=== PATIENT | female | born 1960 | race Caucasian/White ===

== ENCOUNTER 2016-11-19 12:36 | Observation (INO) | payer MEDICAID ==
[2016-11-19] MEDS ORDERED: KETOROLAC 30 MG/1 ML SDV IVP ONE (13:03)
[2016-11-19] MEDS ORDERED: NS 1,000 ML IV ONE (13:03)
[2016-11-19] MEDS ORDERED: ONDANSETRON 4 MG/2 ML VIAL IVP ONE (13:03)
--- NOTE | 2016-11-19 13:08 | EDPHY ---
H & P Time Seen by Provider: 11/19/16 12:49 HPI/ROS: CHIEF COMPLAINT: Vomiting and diarrhea HISTORY OF PRESENT ILLNESS: Patient is a 56-year-old female status post cholecystectomy and appendectomy who presents to the emergency department with vomiting and diarrhea since 3:00 a.m.. She initially developed diarrhea. 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 "It is trickling out." She has had 4 episodes nonbloody emesis. She denies fevers or chills. No dysuria or frequency. In fact, she reports decreased urination. She had no known recent travel. No antibiotic use. REVIEW OF SYSTEMS: My complete review of systems is negative except as mentioned in the HPI. Past Medical/Surgical History: Includes hypothyroidism, chronic back pain, depression, suite syndrome Past surgical history: Cholecystectomy, tubal ligation, appendectomy Social: Patient occasionally drinks alcohol. She does not smoke. Smoking Status: Current some day smoker Physical Exam: Vitals noted GENERAL: No acute distress, alert. HEENT: Eyes normal to inspection, normal pharynx, no signs of dehydration. NECK: No thyromegaly, no lymphadenopathy, supple. RESPIRATORY: Clear to auscultation bilaterally, no rales, rhonchi or wheezing. CVS: Regular rate and rhythm, no rubs, murmurs, or gallops. ABDOMEN: Soft, mild diffuse tenderness to palpation. No rebound or guarding. Nondistended, no organomegaly. Normal bowel sounds BACK: Normal to inspection, no CVA tenderness. SKIN: Normal color, no rash, warm, dry. No pallor. EXTREMITIES: No pedal edema, no calf tenderness, no Homans sign or cords, no joint swelling. NEURO/PSYCH: Alert and oriented, normal mood and affect, normal motor sensory exam. Constitutional: Initial Vital Signs Temperature (C) 36.3 C 11/19/16 12:59 Heart Rate 103 H 11/19/16 12:59 Respiratory Rate 18 11/19/16 12:59 Blood Pressure 150/109 H 11/19/16 12:59 O2 Sat (%) 97 11/19/16 12:59 O2 Delivery Mode Room Air Allergies/Adverse Reactions: No Known Allergies Allergy (Verified 11/19/16 12:58) Home Medications: Medication Instructions Recorded Levothyroxine [Synthroid 175 mcg 175 mcg PO DAILY06 01/20/14 (*)] Oxycodone HCl/Acetaminophen 2 each PO BID PRN 01/20/14 [Percocet 10-325 mg Tablet] Medical Decision Making ED Course/Re-evaluation: In the emergency department I discussed possible etiologies with the patient. I answered all her questions. IV was placed. Patient was given normal saline 1 L IV for hydration. She is given Zofran 4 mg IV for nausea. Patient was given Imodium 2 tablets. The patient was given Toradol 30 mg IV for her discomfort. 1340: The patient is stable. Patient [place] [address]. Her hematocrit is high at 55. Chemistry panel is remarkable for mildly elevated sodium of 148. Her calcium is mildly elevated. Anion gap is mildly high at 18. 1355: The patient states her cramping has improved. She still has mild diffuse lower abdominal discomfort. She is given morphine 4 mg IV. She is still waiting CT imaging. CT: Please refer the dictated report by Dr. Chahal. The patient has findings consistent with enteritis. No obstruction or abscess. I rechecked the patient. She states she felt slightly better but still had cramping. She was given repeat morphine 4 mg IV. Discussed the case with Dr. Burr from the hospitalist service. He accepts the patient. The patient agrees with the plan. Differential Diagnosis: My differential includes but is not limited to vomiting diarrhea, gastroenteritis, small-bowel obstruction, perforation, electrolyte abnormality, sugar abnormality, sepsis, bacteremia, dehydration, urinary tract infection - Data Points Laboratory Results: Laboratory Results 11/19/16 13:13 11/19/16 13:13 11/19/16 11/19/16 11/19/16 13:13 13:13 13:13 WBC 18.07 10^3/uL H 10^3/uL (3.80-9.50) RBC 5.95 10^6/uL H 10^6/uL (4.18-5.33) Hgb 18.9 g/dL H g/dL (12.6-16.3) Hct 55.2 % H % (38.0-47.0) MCV 92.8 fL fL (81.5-99.8) MCH 31.8 pg pg (27.9-34.1) MCHC 34.2 g/dL g/dL (32.4-36.7) RDW 12.8 % % (11.5-15.2) Plt Count 401 10^3/uL H 10^3/uL (150-400) MPV 9.2 fL fL (8.7-11.7) Neut % (Auto) 85.9 % H % (39.3-74.2) Lymph % (Auto) 10.5 % L % (15.0-45.0) [place] % (Auto) 2.5 % L % (4.5-13.0) Eos % (Auto) 0.1 % L % (0.6-7.6) Baso % (Auto) 0.4 % % (0.3-1.7) Nucleat RBC Rel Count 0.0 % % (0.0-0.2) Absolute Neuts (auto) 15.52 10^3/uL H 10^3/uL (1.70-6.50) Absolute Lymphs (auto) 1.90 10^3/uL 10^3/uL (1.00-3.00) Absolute Monos (auto) 0.46 10^3/uL 10^3/uL (0.30-0.80) Absolute Eos (auto) 0.01 10^3/uL L 10^3/uL (0.03-0.40) Absolute Basos (auto) 0.08 10^3/uL 10^3/uL (0.02-0.10) Absolute Nucleated RBC 0.00 10^3/uL 10^3/uL (0-0.01) Immature Gran % 0.6 % % (0.0-1.1) Immature Gran # 0.10 10^3/uL 10^3/uL (0.00-0.10) Sodium 148 mEq/L H mEq/L (134-144) Potassium 4.4 mEq/L mEq/L (3.5-5.2) Chloride 108 mEq/L mEq/L (97-110) Carbon Dioxide 22 mEq/l mEq/l (22-31) Anion Gap 18 mEq/L H mEq/L (8-16) BUN 17 mg/dL mg/dL (7-23) Creatinine 0.8 mg/dL mg/dL (0.6-1.0) Estimated GFR > 60 Glucose 104 mg/dL H mg/dL (70-100) Calcium 10.8 mg/dL H mg/dL (8.5-10.4) Phosphorus 4.7 mg/dL H mg/dL (2.5-4.5) Total Bilirubin 0.7 mg/dL mg/dL (0.1-1.4) Conjugated Bilirubin 0.4 mg/dL mg/dL (0.0-0.5) Unconjugated Bilirubin 0.3 mg/dL mg/dL (0.0-1.1) AST 26 IU/L IU/L (14-46) ALT 46 IU/L IU/L (9-52) Alkaline Phosphatase 83 IU/L IU/L (38-126) Total Protein 8.9 g/dL H g/dL (6.3-8.2) Albumin 5.3 g/dL H g/dL (3.5-5.0) Lipase 117 IU/L IU/L (23-300) Beta HCG, Qual NEGATIVE Medications Given: Discontinued Medications Sodium Chloride (Ns) 1,000 mls @ 0 mls/hr IV EDNOW ONE; Wide Open PRN Reason: Protocol Stop: 11/19/16 13:04 Last Admin: 11/19/16 13:10 Dose: 1,000 mls Ketorolac Tromethamine (Toradol) 30 mg IVP EDNOW ONE Stop: 11/19/16 13:04 Last Admin: 11/19/16 13:10 Dose: 30 mg Morphine Sulfate (Morphine) 4 mg IVP EDNOW ONE Stop: 11/19/16 13:56 Last Admin: 11/19/16 13:57 Dose: 4 mg Ondansetron HCl (Zofran) 4 mg IVP EDNOW ONE Stop: 11/19/16 13:04 Last Admin: 11/19/16 13:10 Dose: 4 mg Departure - Departure Disposition: [facility] Clinical Impression: Abdominal pain Qualifiers: Abdominal location: lower abdomen, unspecified Qualified Code(s): R10.30 - Lower abdominal pain, unspecified Diarrhea Qualifiers: Diarrhea type: unspecified type Qualified Code(s): R19.7 - Diarrhea, unspecified Vomiting Qualifiers: Vomiting type: unspecified Vomiting Intractability: unspecified Nausea presence : with nausea Qualified Code(s): R11.2 - Nausea with vomiting, unspecified Condition: Good Referrals: CLINICA CAMPESINA,. [Primary Care Provider] - As per Instructions
[2016-11-19 13:19] LABS: % IMMATURE GRANULYOCYTES 0.6 % (0.0-1.1); ADD DIFF? NO; ADD MORPH? NO; ADD SCAN? NO; ATYPICAL LYMPHOCYTE FLAG 0 (0-99); FRAGMENT RBC FLAG 0 (0-99); HEMATOCRIT 55.2 % (38.0-47.0); HEMOGLOBIN 18.9 g/dL (12.6-16.3); LEFT SHIFT FLG 0 (0-99); LIPEMIA HEMOLYSIS FLAG 90 (0-99); MEAN CELL HEMOGLOBIN 31.8 pg (27.9-34.1); MEAN CELL HEMOGLOBIN CONCENTR. 34.2 g/dL (32.4-36.7); MEAN CELL VOLUME 92.8 fL (81.5-99.8); MEAN PLATELET VOLUME 9.2 fL (8.7-11.7); PLATELET CLUMPS FLAG 10 (0-99); PLATELET COUNT 401 10^3/uL (150-400); RED BLOOD CELL COUNT 5.95 10^6/uL (4.18-5.33); RED CELL DISTRIBUTION WIDTH 12.8 % (11.5-15.2)
[2016-11-19 13:40] LABS: ALANINE AMINOTRANSFERASE 46 IU/L (9-52); ALBUMIN 5.3 g/dL (3.5-5.0); ALKALINE PHOSPHATASE 83 IU/L (38-126); ANION GAP 18 mEq/L (8-16); ASPARTATE AMINOTRANSFERASE 26 IU/L (14-46); BILIRUBIN,TOTAL 0.7 mg/dL (0.1-1.4); BILIRUBIN-CONJUGATED 0.4 mg/dL (0.0-0.5); BILIRUBIN-UNCONJUGATED 0.3 mg/dL (0.0-1.1); CALCIUM 10.8 mg/dL (8.5-10.4); CARBON DIOXIDE 22 mEq/l (22-31); CHLORIDE 108 mEq/L (97-110); CREATININE 0.8 mg/dL (0.6-1.0); GLOMERULAR FILTRATION RATE > 60; GLUCOSE 104 mg/dL (70-100); POTASSIUM 4.4 mEq/L (3.5-5.2); SODIUM 148 mEq/L (134-144); TOTAL PROTEIN 8.9 g/dL (6.3-8.2)
[2016-11-19] MEDS ORDERED: IOPAMIDOL (ISOVUE-300) 100 ML BTL ONE (13:50)
[2016-11-19] MEDS ORDERED: ACETAMINOPHEN 325 MG TAB PO PRN (17:02)
[2016-11-19] MEDS ORDERED: ONDANSETRON DISINTEGRATING 4 MG TAB PO PRN (17:02)
[2016-11-19] MEDS ORDERED: ONDANSETRON 4 MG/2 ML VIAL IVP PRN (17:02)
[2016-11-19] MEDS: HYDROmorphONE/DILAUDID 1 MG/ML SYR IVP PRN ×3 (17:17→22:06)
[2016-11-19] MEDS: oxyCODONE IR 5 MG TAB PO PRN ×3 (17:36→23:25)
[2016-11-19] MEDS: NS 1,000 ML IV SCH (17:42)
--- NOTE | 2016-11-19 20:20 | GHP ---
[f rep st] HISTORY AND PHYSICAL DATE OF ADMISSION: 11/19/2016 CHIEF COMPLAINT: Abdominal pain, diarrhea, nausea, vomiting. HISTORY OF PRESENT ILLNESS: This is a 56-year-old female who was in her usual state of health until 3 o'clock this morning, when she developed first abdominal pain, then diarrhea, then nausea and vom iting. She has had profuse watery diarrhea but no blood. She has also had nausea and vomiting. Sh yanick is complaining of sharp epigastric pain that is quite severe. She did not eat anything particular ly suspicious the night before. No fevers or chills. No recent travel. REVIEW OF SYSTEMS: A 10-point review of systems was obtained and was negative. PAST MEDICAL HISTORY: 1. Probable COPD. 2. Appendectomy. 3. Cholecystectomy. 4. Hypothyroidism. 5. Graves disease, status post thyroidectomy. SOCIAL HISTORY: Does smoke, although she is trying to cut down. FAMILY HISTORY: Reviewed, noncontributory. PHYSICAL EXAMINATION: VITAL SIGNS: Afebrile, blood pressure was 150/109, heart rate 103, heart rat e has come down. GENERAL: Patient is well developed, no apparent distress. HEENT: Nonicteric scl erae. Extraocular movements intact. Moist mucous membranes. NECK: Supple. No thyromegaly. LUNG S: Good effort. Decreased breath sounds. CARDIOVASCULAR: Regular rate and rhythm. No murmurs, g allops. ABDOMEN: Positive bowel sounds. Soft. Some mild diffuse tenderness. No rebound or guard ing. EXTREMITIES: No clubbing, cyanosis, or edema. SKIN: Without rash, warm, intact. NEURO: Al ert and oriented x3. Moving all 4 extremities equally. PSYCHIATRIC: Normal mood and affect. LABORATORY DATA: White count is elevated at 18, hemoglobin is 18, platelets of 401. Lactate is nor mal. Sodium 148, potassium 4.4, creatinine is 0.8. LFTs are normal. CT scan of the abdomen and pelvis shows mesenteric edema and mild small-bowel wall thickening sugges ting infectious enteritis. ASSESSMENT: This is a 56-year-old female presenting with nausea, vomiting, diarrhea, abdominal pain . PLAN: 1. Nausea, vomiting, abdominal pain. Trying to differentiate between infectious gastroenteritis ve rsus ischemic colitis. It is reassuring that her lactate is normal. She does appear to have pain a little bit more pronounced on her exam. Plan will be to continue to monitor closely. We will get a GI pathogen panel. Pain control. We will hold off on any antibiotics at this time. 2. Polycythemia. Could be dehydration or could be chronic hypoxia. Will see what she does with IV fluids. /[id number]/MODL
[2016-11-20] MEDS: HYDROmorphONE/DILAUDID 1 MG/ML SYR IVP PRN ×6 (00:13→11:32)
[2016-11-20] MEDS: NS 1,000 ML IV SCH (02:43)
[2016-11-20] MEDS: oxyCODONE IR 5 MG TAB PO PRN ×3 (03:31→10:06)
[2016-11-20 04:56] LABS: % IMMATURE GRANULYOCYTES 0.3 % (0.0-1.1); ABSOLUTE IMMATURE GRANULOCYTES 0.02 10^3/uL (0.00-0.10); ADD DIFF? NO; ADD MORPH? NO; ADD SCAN? NO; ATYPICAL LYMPHOCYTE FLAG 10 (0-99); FRAGMENT RBC FLAG 0 (0-99); HEMATOCRIT 39.6 % (38.0-47.0); HEMOGLOBIN 13.2 g/dL (12.6-16.3); LEFT SHIFT FLG 0 (0-99); LIPEMIA HEMOLYSIS FLAG 80 (0-99); MEAN CELL HEMOGLOBIN 32.4 pg (27.9-34.1); MEAN CELL HEMOGLOBIN CONCENTR. 33.3 g/dL (32.4-36.7); MEAN CELL VOLUME 97.1 fL (81.5-99.8); MEAN PLATELET VOLUME 9.5 fL (8.7-11.7); PLATELET CLUMPS FLAG 0 (0-99); PLATELET COUNT 226 10^3/uL (150-400); RED BLOOD CELL COUNT 4.08 10^6/uL (4.18-5.33); RED CELL DISTRIBUTION WIDTH 12.7 % (11.5-15.2)
[2016-11-20 05:15] LABS: ALANINE AMINOTRANSFERASE 33 IU/L (9-52); ALBUMIN 3.6 g/dL (3.5-5.0); ALKALINE PHOSPHATASE 52 IU/L (38-126); ANION GAP 11 mEq/L (8-16); ASPARTATE AMINOTRANSFERASE 19 IU/L (14-46); BILIRUBIN,TOTAL 0.8 mg/dL (0.1-1.4); CALCIUM 8.2 mg/dL (8.5-10.4); CARBON DIOXIDE 22 mEq/l (22-31); CHLORIDE 106 mEq/L (97-110); CREATININE 0.7 mg/dL (0.6-1.0); GLOMERULAR FILTRATION RATE > 60; GLUCOSE 88 mg/dL (70-100); POTASSIUM 3.5 mEq/L (3.5-5.2); SODIUM 139 mEq/L (134-144); TOTAL PROTEIN 5.9 g/dL (6.3-8.2)
[2016-11-20] MEDS ORDERED: NON-FORMULARY NEW DRUG (Oxycodone Hcl/Acetaminophen [Percocet 10-325 Mg Tablet] 1 EACH) PO PRN (11:24)
[2016-11-20 11:29] VITALS: BP 135/89; PULSE 67; RESP 18; TEMP 98.4; O2SAT 90
[2016-11-20] MEDS ORDERED: oxyCODONE IR 5 MG TAB PO PRN (11:31)
[2016-11-20] MEDS ORDERED: OXYCODONE/APAP 5/325 TAB PO PRN (11:31)
[2016-11-20] MEDS ORDERED: morphINE SR 15 MG TAB PO ONE (12:07)
--- NOTE | 2016-11-20 12:10 | HOSPPROG ---
Hospitalist Progress Note Assessment/Plan: 56 yo F w viral gastroenteritis now hungry benign exam and imaging home today see dc summary Subjective: hungry Objective: Vital Signs Temp Pulse Resp BP Pulse Ox 36.9 C 67 18 135/89 H 90 L 11/20/16 11:28 11/20/16 11:28 11/20/16 11:28 11/20/16 11:28 11/20/16 11:28 Laboratory Results 11/20/16 04:40 11/20/16 04:40 11/19/16 11/20/16 11/21/16 05:59 05:59 05:59 Intake Total 1100 Balance 1100 - Physical Exam Constitutional: no apparent distress, appears nourished Eyes: PERRL, anicteric sclera Ears, Nose, Mouth, Throat: moist mucous membranes, hearing normal Cardiovascular: regular rate and rhythym, no murmur, rub, or gallop Respiratory: no respiratory distress, no rales or rhonchi Gastrointestinal: normoactive bowel sounds, soft, non-tender abdomen Genitourinary: no bladder fullness, No huffman in urethra Skin: warm, normal color Musculoskeletal: full muscle strength, no muscle tenderness Neurologic: AAOx3, sensation intact bilaterally Psychiatric: interacting appropriately, not anxious Lymph, Heme, Immunologic: no cervical LAD ICD10 Worksheet Patient Problems: Problems Problem Status Onset Abdominal pain Acute Diarrhea Acute Vomiting Acute
--- NOTE | 2016-11-20 13:02 | GDS ---
[f rep st] DISCHARGE SUMMARY DISCHARGE DIAGNOSIS: Bowel gas, gastroenteritis. HOSPITAL COURSE: Please see admission history and physical by Dr. Jimmy Burr. The patient presente d with abdominal pain and diarrhea, as well as some nausea and vomiting. Those have completely reso lved upon arrival here. She was hemoconcentrated with evidence of volume contraction. She had norm al serum lactate and CAT scan without surgical process. She had a nontender exam and was complainin g of knife-like pain which sounded a lot like gas pain. On the first hospital day, patient was hungry. Diet was advanced. That is pending. If she tolerat es an oral diet, she will go home today. She takes chronic narcotics at home. I have not changed h er narcotic regimen nor have I provided her with narcotic prescriptions. Her discharge medication regimen is unchanged, negative beta HCG. /[id number]/MODL
[2016-11-20] MEDS ORDERED: morphINE SR 15 MG TAB PO SCH (21:00)
[2016-11-21] MEDS ORDERED: LEVOTHYROXINE 112 MCG TAB PO SCH (06:00)
== END 2016-11-20 15:25 | disposition home or self-care (01) ==
LOC: CED 12:36 → CEDHOLD 15:01 → F3E 16:48
PROVIDERS: ADMIT Internal Medicine; ATTEND Internal Medicine
DX: A08.4 Viral intestinal infection, unspecified (principal); E03.9 Hypothyroidism, unspecified; D75.1 Secondary polycythemia; F32.9 Major depressive disorder, single episode, unspecified; G89.29 Other chronic pain; F17.200 Nicotine dependence, unspecified, uncomplicated; Z90.49 Acquired absence of other specified parts of digestive tract
CPT/HCPCS: 74177; G0378; 80048-PO; 80076-PO; 83690-PO; 84100-PO; 84703-PO; 85025-PO; 96374; J1170; J1885; J2405; Q9967

== ENCOUNTER 2016-12-15 08:04 | Emergency (ER) | payer MEDICAID ==
--- NOTE | 2016-12-15 08:40 | EDPHY ---
H & P Stated Complaint: bug bite Time Seen by Provider: 12/15/16 08:21 HPI/ROS: CC: Right hand swelling HPI: This 56-year-old female with past medical history of Graves disease, sciatica, attention deficit hyperactivity disorder, and sweet's syndrome presents to the emergency department today complaining of right hand pain and swelling since yesterday morning. She states she believes she was bitten by a spider. She woke up yesterday and found she had two little holes on the dorsum of her right hand which were oozing a serosanguineous type discharge. Over the course of the last day her right hand has become more swollen. It is starting to extend up her wrist. There is only minimal erythema. It feels pruritic to her. She denies fever but states she has some sweating on and off. She denies injury to her hand, IVDU or recent illness. She had sores on her body years ago and was diagnosed with Sweet's syndrome. She is also not sure whether or not the tests that she had for MRSA in the past came back positive. REVIEW OF SYSTEMS: Constitutional: No fever, no chills. Eyes: No discharge. ENT: No sore throat. Respiratory: No cough, no shortness of breath. Cardiac: No chest pain, no palpitations. Gastrointestinal: No abdominal pain, no vomiting. Genitourinary: No hematuria. Musculoskeletal: No back pain. Skin: No rashes. Neurological: No headache. Source: Patient Exam Limitations: No limitations - Personal History LMP (Females 10-55): Irregular Current Tetanus Diphtheria and Acellular Pertussis (TDAP): Yes Tetanus Vaccine Date: WITHIN 10 YRS - Medical/Surgical History PMH: PMH: Graves disease, sciatic, attention deficit hyperactivity disorder, sweet' s syndrome, possible COPD PSH: Jossy, Appy FH: Not sure; parents NKDA MEDS: Levothyroxine, Percocet (given only two per day), Methylphenidate PRN Hx Asthma: No Hx Chronic Respiratory Disease: No Hx Diabetes: No Hx Cardiac Disease: No Hx Renal Disease: No Hx Cirrhosis: No Hx Alcoholism: No Hx HIV/AIDS: No Hx Splenectomy or Spleen Trauma: No Other PMH: HYPOTHYROIDISM, CHRONIC BACK PAIN, sweet syndrome, APPY, GALL BLADDER removal, graves dz, ptsd, depression - Social History Smoking Status: Current some day smoker (5 cig/day; Denies ETOH; Denies IVDU; Denies THC50) Alcohol Use: None Drug Use: None Additional Social History: 19 y/o daughter and grandson lives with patient. - Physical Exam Exam: General Appearance: Alert, mild distress. Eyes: Pupils equal and round no pallor or injection. ENT, Mouth: Mucous membranes are moist. Respiratory: There are no retractions, lungs are clear to auscultation. Cardiovascular: Regular rate and rhythm. Gastrointestinal: Abdomen is soft and nontender. Neurological: Awake and alert, sensory and motor exams grossly normal. Skin: Warm and dry, multiple scars on extremities. Musculoskeletal: Neck is supple nontender. Extremities are symmetrical, full range of motion. The patient's right hand has moderate soft tissue swelling. There are two small punctate areas that the patient states are spider bites. No drainage. Minimal erythema overall. Cap refill and radial pulse intact. No sign of compartment syndrome. Psychiatric: Patient is oriented X 3, there is no agitation. She is anxious. DIFFERENTIAL DIAGNOSIS: After history and physical exam differential diagnosis was considered for [but not limited to: insect bite or sting, cellulitis, foreign body] Constitutional: Initial Vital Signs Temperature (C) 97.9 F 12/15/16 08:19 Heart Rate 80 12/15/16 08:19 Respiratory Rate 20 12/15/16 08:19 Blood Pressure 146/83 H 12/15/16 08:19 O2 Sat (%) 94 12/15/16 08:19 O2 Delivery Mode Room Air Allergies/Adverse Reactions: No Known Allergies Allergy (Verified 12/15/16 08:25) Home Medications: Medication Instructions Recorded Oxycodone HCl/Acetaminophen 1 each PO BID PRN 01/20/14 [Percocet 10-325 mg Tablet] Levothyroxine [Synthroid 112 mcg 112 mcg PO DAILY06 11/19/16 (*)] Clindamycin HCl [Clindamycin] 300 mg PO TID 10 Days #30 cap 12/15/16 Medical Decision Making - Diagnostics Imaging Results: STS right hand; no FB ED Course/Re-evaluation: The patient was seen and examined. VS and select past records reviewed. X-ray obtained and reviewed which showed STS, no fx, no FB. Labs reviewed and reassuring. Given Clindamycin 600mg IVPB. Rx for oral Clinda. Patient has follow up in place for tomorrow with PCP. - Data Points Laboratory Results: Laboratory Results 12/15/16 08:42 12/15/16 08:42 Medications Given: Discontinued Medications Clindamycin Phosphate/Dextrose (Cleocin 600 Mg (Premix)) 50 mls @ 100 mls/hr IV EDNOW ONE PRN Reason: Protocol Stop: 12/15/16 09:35 Last Admin: 12/15/16 10:10 Dose: 50 mls Oxycodone/Acetaminophen (Percocet 5/325) 1 tab PO EDNOW ONE Stop: 12/15/16 09:10 Last Admin: 12/15/16 09:24 Dose: 1 tab Departure - Departure Disposition: Home, Routine, Self-Care Clinical Impression: Swelling of right hand Cellulitis Qualifiers: Site of cellulitis of extremity: upper extremity Laterality: right Condition: Good Instructions: Cellulitis (ED) Additional Instructions: See your primary care provider tomorrow as scheduled without fail. Keep your hand elevated as much as possible. Take your antibiotics with you and discuss length of treatment. I have written a 10 day course of Clindamycin for you. If symptoms worsen, you may need to be admitted to the hospital. Return to the Emergency Department at any time if you have any further problems or concerns. Referrals: VIJAYA HURTADO,. [Primary Care Provider] - As per Instructions Stand Alone Forms: Statement of Treatment, Work Excuse Prescriptions: Clindamycin HCl [Clindamycin] 300 mg PO TID 10 Days #30 cap
[2016-12-15 09:04] LABS: % IMMATURE GRANULYOCYTES 0.2 % (0.0-1.1); ABSOLUTE IMMATURE GRANULOCYTES 0.01 10^3/uL (0.00-0.10); ADD DIFF? NO; ADD MORPH? NO; ADD SCAN? NO; ATYPICAL LYMPHOCYTE FLAG 40 (0-99); FRAGMENT RBC FLAG 0 (0-99); HEMATOCRIT 43.4 % (38.0-47.0); HEMOGLOBIN 14.9 g/dL (12.6-16.3); LEFT SHIFT FLG 0 (0-99); LIPEMIA HEMOLYSIS FLAG 90 (0-99); MEAN CELL HEMOGLOBIN 32.4 pg (27.9-34.1); MEAN CELL HEMOGLOBIN CONCENTR. 34.3 g/dL (32.4-36.7); MEAN CELL VOLUME 94.3 fL (81.5-99.8); MEAN PLATELET VOLUME 9.6 fL (8.7-11.7); PLATELET CLUMPS FLAG 10 (0-99); PLATELET COUNT 205 10^3/uL (150-400); RED CELL DISTRIBUTION WIDTH 12.5 % (11.5-15.2)
[2016-12-15] MEDS ORDERED: CLINDAMYCIN 600 MG/DEXTROSE 50 ML IV ONE (09:06)
[2016-12-15] MEDS ORDERED: OXYCODONE/APAP 5/325 TAB PO ONE (09:09)
[2016-12-15 09:21] LABS: SEDIMENTATION RATE 7 MM/HR (0-30)
[2016-12-15 09:26] LABS: ANION GAP 13 mEq/L (8-16); CALCIUM 9.2 mg/dL (8.5-10.4); CARBON DIOXIDE 23 mEq/l (22-31); CHLORIDE 104 mEq/L (97-110); CREATININE 0.5 mg/dL (0.6-1.0); GLOMERULAR FILTRATION RATE > 60; GLUCOSE 93 mg/dL (70-100); SODIUM 140 mEq/L (134-144)
[2016-12-15 10:28] LABS: C-REACTIVE PROTEIN 7.1 mg/L (<10.0)
[2016-12-15 11:19] VITALS: BP 127/87; PULSE 66; RESP 16; TEMP 98.2; O2SAT 93
== END 2016-12-15 11:07 | disposition home or self-care (01) ==
LOC: CED 08:04
DX: L03.113 Cellulitis of right upper limb (principal); F17.210 Nicotine dependence, cigarettes, uncomplicated
CPT/HCPCS: 73130-PO; 80048-PO; 84443-PO; 85025-PO; 85652-PO; 96365

== ENCOUNTER 2017-06-08 13:34 | Emergency (ER) | payer MEDICAID ==
[2017-06-08 13:44] VITALS: TEMP 98.2
--- NOTE | 2017-06-08 14:06 | EDPHY ---
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 It was diagnosed in 2011 at [facility] by a bridge rigger per her report. She states she has similar lesions that started yesterday. Also with some leg swelling. Denies fevers or chills. No nausea or vomiting. Was recently at [facility] for an alleged accidental Tylenol overdose. She denies Tylenol overdose. She says she went to the hospital at that time in May, for nausea and vomiting. She states she has an appointment with her primary care physician tomorrow. REVIEW OF SYSTEMS: Constitutional: No fever, no chills. Eyes: No discharge. ENT: No sore throat. Cardiovascular: No chest pain, no palpitations. Respiratory: No cough, no shortness of breath. Gastrointestinal: No abdominal pain, no vomiting. Genitourinary: No dysuria. Musculoskeletal: No back pain. Skin: No rashes. Neurological: No headache. General Appearance: Alert, no distress. Eyes: Pupils equal and round no pallor or injection. Proptosis noted bilaterally. ENT, Mouth: Mucous membranes moist. Respiratory: There are no retractions, lungs are clear to auscultation. Cardiovascular: Regular rate and rhythm. Gastrointestinal: Abdomen is soft and nontender, no masses, bowel sounds normal. Neurological: Awake alert, no focal neurologic deficits. Skin: Warm and dry, no rashes. Multiple lesions scattered to legs with a few on back. Several larger 1-1.5 cm pustules with majority of the lesions small papules. No surrounding erythema. No LAD. Musculoskeletal: Neck is supple nontender. Extremities are symmetrical, full range of motion, no edema. Psychiatric: Patient is oriented X 3, there is no agitation. Medical/surgical history: Grave's disease, ADHD, Sweet's disease Social history: smoker, denies drugs or EtOH. Smoking Status: Current every day smoker Constitutional: Initial Vital Signs Temperature (C) 36.8 C 06/08/17 13:40 Heart Rate 91 06/08/17 13:40 Respiratory Rate 16 06/08/17 13:40 Blood Pressure 137/88 H 06/08/17 13:40 O2 Sat (%) 94 06/08/17 13:40 O2 Delivery Mode Room Air Allergies/Adverse Reactions: bee venom protein (honey bee) Allergy (Verified 06/08/17 13:40) PT REPORTS SWELLING Home Medications: Medication Instructions Recorded Levothyroxine [Synthroid 112 mcg 11/19/16 (*)] Medical Decision Making Differential Diagnosis: Differential diagnosis includes but not limited to cellulitis, contact dermatitis, folliculitis, Sweet's disease. Patient with history of Sweet's disease but currently with out fever or neutrophillia characteristic of the syndrome. No apparent cellulitis, drainable abscess, fever or other systemic infectious symptoms. As patient has follow up with PCP tomorrow will give steroid dose (Sweet's treatment) and defer to PCP for further management. Discussed with patient importance of follow up. Stable for discharge. - Data Points Laboratory Results: Laboratory Results 06/08/17 14:18 06/08/17 14:18 WBC 6.67 10^3/uL 10^3/uL (3.80-9.50) RBC 4.03 10^6/uL L 10^6/uL (4.18-5.33) Hgb 13.5 g/dL g/dL (12.6-16.3) Hct 40.5 % % (38.0-47.0) MCV 100.5 fL H fL (81.5-99.8) MCH 33.5 pg pg (27.9-34.1) MCHC 33.3 g/dL g/dL (32.4-36.7) RDW 13.5 % % (11.5-15.2) Plt Count 280 10^3/uL 10^3/uL (150-400) MPV 9.0 fL fL (8.7-11.7) Neut % (Auto) 60.7 % % (39.3-74.2) Lymph % (Auto) 28.0 % % (15.0-45.0) [place] % (Auto) 9.0 % % (4.5-13.0) Eos % (Auto) 1.3 % % (0.6-7.6) Baso % (Auto) 0.7 % % (0.3-1.7) Nucleat RBC Rel Count 0.0 % % (0.0-0.2) Absolute Neuts (auto) 4.04 10^3/uL 10^3/uL (1.70-6.50) Absolute Lymphs (auto) 1.87 10^3/uL 10^3/uL (1.00-3.00) Absolute Monos (auto) 0.60 10^3/uL 10^3/uL (0.30-0.80) Absolute Eos (auto) 0.09 10^3/uL 10^3/uL (0.03-0.40) Absolute Basos (auto) 0.05 10^3/uL 10^3/uL (0.02-0.10) Absolute Nucleated RBC 0.00 10^3/uL 10^3/uL (0-0.01) Immature Gran % 0.3 % % (0.0-1.1) Immature Gran # 0.02 10^3/uL 10^3/uL (0.00-0.10) Medications Given: Discontinued Medications Prednisone (Prednisone) 60 mg PO EDNOW ONE Stop: 06/08/17 14:58 Last Admin: 06/08/17 15:05 Dose: 60 mg Departure - Departure Disposition: Home, Routine, Self-Care Clinical Impression: Skin lesions Condition: Fair Instructions: Abscess Follow-up (ED) Additional Instructions: Here given a single dose of prednisone 4 year presumed sweets disease lesions. It is important he follow up with the primary care physician as scheduled tomorrow without fail. You will clean the more medications prescribed by her primary care physician. Return to the emergency department if he develops fevers, worsening skin lesions or other concerning new symptoms. Referrals: Handy Stone MD [Primary Care Provider] - As per Instructions
[2017-06-08 14:44] LABS: PLATELET COUNT 280 10^3/uL (150-400)
[2017-06-08] MEDS ORDERED: predniSONE 20 MG TAB PO ONE (14:57)
[2017-06-08 15:22] VITALS: BP 137/86; PULSE 73; RESP 20; O2SAT 95
== END 2017-06-08 15:22 | disposition home or self-care (01) ==
LOC: CED 13:34
DX: L98.9 Disorder of the skin and subcutaneous tissue, unspecified (principal); F17.200 Nicotine dependence, unspecified, uncomplicated
CPT/HCPCS: 85025-PO; J7512

== ENCOUNTER 2017-06-17 00:21 | Emergency (ER) | payer MEDICAID ==
[2017-06-17 00:26] VITALS: TEMP 97.9; O2SAT 95
--- NOTE | 2017-06-17 00:59 | EDPHY ---
H & P Stated Complaint: clearance for custodial Time Seen by Provider: 06/17/17 00:52 HPI/ROS: Chief Complaint: Head injury, med clearance HPI: 56-year-old woman who is being brought in for medical clearance. She was pulled over for a DUI. Officer states that while he was in the process of working her she began having her head on the cell wall. She did not have a loss of consciousness. She is being brought in for med clearance. Currently she states she is feeling suicidal and does not want to live any longer. 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 No new injuries or illnesses. No chest pain or shortness of breath. No abdominal pain. Admits to drinking some alcohol earlier this evening. Patient also states she is off her thyroid medication as well. ROS: 10 point Review of Systems is negative except as noted in the HPI. PMH: Sweet syndrome, hypothyroidism., depression Social History: Positive smoking, occasional alcohol Family History: non-contributory Physical Exam: Gen: Awake, Alert, No Distress HEENT: Head is atraumatic Nose: no rhinorrhea Eyes: PERRLA, EOMI, mild proptosis Mouth: Moist mucosa Neck: Supple, no JVD Chest: nontender, lungs clear to auscultation Heart: S1, S2 normal, no murmur Abd: Soft, non-tender, no guarding Back: no CVA tenderness, no midline tenderness Ext: no edema, non-tender Skin: no rash Neuro: CN II-XII intact, Sensation grossly intact, Strength 5/5 in bilateral upper and lower extremities - Personal History LMP (Females 10-55): Post Menopausal Current Tetanus/Diphtheria Vaccine: Unsure Current Tetanus Diphtheria and Acellular Pertussis (TDAP): Unsure Tetanus Vaccine Date: WITHIN 10 YRS - Medical/Surgical History Hx Asthma: No Hx Chronic Respiratory Disease: No Hx Diabetes: No Hx Cardiac Disease: No Hx Renal Disease: No Hx Cirrhosis: No Hx Alcoholism: No Hx HIV/AIDS: No Hx Splenectomy or Spleen Trauma: No Other PMH: HYPOTHYROIDISM, CHRONIC BACK PAIN, sweet syndrome, APPY, GALL BLADDER removal, graves dz, ptsd, depression - Social History Smoking Status: Current every day smoker Constitutional: Initial Vital Signs Temperature (C) 36.6 C 06/17/17 00:23 Heart Rate 72 06/17/17 00:23 Respiratory Rate 16 06/17/17 00:23 Blood Pressure 135/82 H 06/17/17 00:23 O2 Sat (%) 95 06/17/17 00:23 O2 Delivery Mode Room Air Allergies/Adverse Reactions: bee venom protein (honey bee) Allergy (Verified 06/08/17 13:40) PT REPORTS SWELLING Home Medications: Medication Instructions Recorded Levothyroxine [Synthroid 112 mcg 11/19/16 (*)] Medical Decision Making ED Course/Re-evaluation: 56-year-old woman being brought in for medical clearance for banging her head on the custodial wall. She has no contusion. No trauma. Neck is nontender full range of motion. She is clinically intoxicated. She was suicidal but the will keep her on a suicide watch at the custodial. She is medically cleared. Departure - Departure Disposition: Home, Routine, Self-Care Clinical Impression: Alcohol intoxication Condition: Good Instructions: Alcohol Intoxication (ED) Additional Instructions: MEDICALLY CLEAR FOR [facility] Referrals: Patient,NotPresent [Primary Care Provider] - As per Instructions
[2017-06-17 01:28] VITALS: BP 136/89; PULSE 92; RESP 18
== END 2017-06-17 01:26 | disposition home or self-care (01) ==
DX: F10.129 Alcohol abuse with intoxication, unspecified (principal); F17.200 Nicotine dependence, unspecified, uncomplicated; W22.01XA Walked into wall, initial encounter; Y99.8 Other external cause status; Y93.89 Activity, other specified